=== PATIENT | female | born 1930 | race Caucasian/White ===

== ENCOUNTER 2017-12-15 15:40 | Inpatient (IN) | payer BC, MEDICARE, OTHER ==
[~2017-12-15] VITALS: Ht 157.5 cm; Wt 53.3 kg
[2017-12-15] MEDS ORDERED: SODIUM CHLORIDE 0.9% 1,000 ML IV ONE (16:22)
[2017-12-15] MEDS ORDERED: SODIUM CHLORIDE FLUSH 10ML SYR IVF ONE (16:30)
[2017-12-15] MEDS ORDERED: POLY17PO5 PO (16:41)
[2017-12-15] MEDS ORDERED: SENN-99 PO (16:41)
[2017-12-15] MEDS ORDERED: ASPI-650 PO (16:41)
[2017-12-15] MEDS ORDERED: LEVO112T4 PO (16:41)
[2017-12-15] MEDS ORDERED: OMEP-110 PO (16:41)
[2017-12-15] MEDS ORDERED: CHOL100015 PO (16:41)
[2017-12-15] MEDS ORDERED: ATOR40TA78 PO (16:41)
[2017-12-15] MEDS ORDERED: LISI-170 PO (16:41)
[2017-12-15 16:52] LABS: CULTURE INDICATED? YES; MICROSCOPIC INDICATED
[2017-12-15 17:23] LABS: MEAN CORPUSCULAR HEMOGLOBIN 30.5 pg (27.0-34.8); MEAN CORPUSCULAR HGB CONC 33.3 g/dL (32.4-35.8); MEAN CORPUSCULAR VOLUME 91.6 fL (80-100); MEAN PLATELET VOLUME 8.8 fL (7.4-10.4); PLATELET COUNT 285 x10^3/uL (130-400); RED CELL DISTRIBUTION WIDTH 14.9 % (9.6-15.2)
[2017-12-15] MEDS ORDERED: CEFTRIAXONE PMX 1GM/50ML 50 ML ONE (17:23)
[2017-12-15 17:30] LABS: ALANINE AMINOTRANSFERASE 17 U/L (12-78); ALBUMIN 2.9 g/dL (3.4-5.0); ANION GAP 11 mmol/L (5-15); CALCIUM 7.8 mg/dL (8.5-10.1); CHLORIDE 106 mmol/L (98-107); CREATININE 0.58 mg/dL (0.55-1.02)
[2017-12-15] MEDS ORDERED: SODIUM CHLORIDE 0.9% 1,000ML IVBOLUS ONE (17:30)
[2017-12-15] MEDS ORDERED: CEFTRIAXONE PMX 1GM/50ML 50 ML IV ONE (17:30)
[2017-12-15 17:37] LABS: BAND#(MANUAL) 0.85 x10^3/uL; BANDS%(MANUAL) 4 % (0-7); LYMPH#(MANUAL) 2.13 x10^3/uL (1-3.4); LYMPHS% (MANUAL) 10 % (22-44); MD YES; MONOS#(MANUAL) 0.64 x10^3/uL (0.3-2.7); MONOS% (MANUAL) 3 % (2-9); SEG#(MANUAL) 17.68 x10^3/uL (1.8-6.8); SEGS% (MANUAL) 83 % (42-75)
[2017-12-15 17:39] LABS: <PLATELET ESTIMATE> ADEQUATE; <PLT MORPHOLOGY> NORMAL PLT MORPH; <RBC MORPHOLOGY> NORMAL
[2017-12-15 17:40] LABS: ALKALINE PHOSPHATASE 96 U/L (45-117); BILIRUBIN,TOTAL 0.9 mg/dL (0.2-1.0); THYROID STIMULATING HORMONE 0.225 mIU/L (0.358-3.740); TOTAL PROTEIN 7.1 g/dL (6.4-8.2)
[2017-12-15] MEDS ORDERED: CEFTAZIDIME PMX 2 GM/50ML 50 ML IV ONE (18:00)
[2017-12-15] MEDS ORDERED: CEFTAZIDIME 2,000 MG in SODIUM CHLORIDE 0.9% 50 ML IV ONE (18:30)
[2017-12-15 19:29] LABS: TROPONIN I 0.118 ng/mL (0.000-0.045)
[2017-12-15 20:25] LABS: T4 (THYROXINE) 16.9 mcg/dL (4.8-13.9)
[2017-12-15] MEDS ORDERED: ERGOCALCIFEROL 50,000 UNIT CAPSULE PO SCH (20:30)
[2017-12-15] MEDS ORDERED: ACETAMINOPHEN 325 MG TABLET PO PRN (20:30)
[2017-12-15] MEDS ORDERED: ONDANSETRON ODT 4 MG PO PRN (20:30)
[2017-12-15] MEDS ORDERED: BISACODYL 10 MG SUPP PR PRN (20:30)
[2017-12-15 21:00] VITALS: BP 145/79
[2017-12-15] MEDS: SENNOSIDES 8.6 MG TABLET PO SCH (21:00)
[2017-12-15] MEDS: ATORVASTATIN 40 MG TABLET PO SCH (21:00)
[2017-12-15] MEDS: LISINOPRIL 10 MG TABLET PO SCH (21:00)
[2017-12-15] MEDS: CEFTAZIDIME 1,000 MG in SODIUM CHLORIDE 0.9% 50 ML IV SCH (22:25)
[2017-12-15] MEDS: NS + 20MEQ KCL 1,000 ML IV SCH (22:25)
[2017-12-15] MEDS: HEPARIN 5,000 UNITS/ML, 1ML SQ SCH (22:26)
[2017-12-15 23:22] LABS: TROPONIN I 0.144 ng/mL (0.000-0.045)
[2017-12-16 02:37] VITALS: BP 139/77
[2017-12-16 04:55] LABS: BASOPHILS # (AUTO) 0.04 x10^3/uL (0-0.1); BASOPHILS % (AUTO) 0 % (0-1); EOSINOPHILS # (AUTO) 0.08 x10^3/uL (0-0.4); EOSINOPHILS % (AUTO) 1 % (1-7); LYMPHOCYTES # (AUTO) 1.34 x10^3/uL (1-3.4); LYMPHOCYTES % (AUTO) 11 % (22-44); MD NO; MEAN CORPUSCULAR HEMOGLOBIN 30.3 pg (27.0-34.8); MEAN CORPUSCULAR HGB CONC 33.4 g/dL (32.4-35.8); MEAN CORPUSCULAR VOLUME 90.8 fL (80-100); MONOCYTES # (AUTO) 0.77 x10^3/uL (0.2-0.8); MONOCYTES % (AUTO) 6 % (2-9); NEUTROPHILS # (AUTO) 10.05 x10^3/uL (1.8-6.8); NEUTROPHILS % (AUTO) 82 % (42-75); PLATELET COUNT 249 x10^3/uL (130-400); RED BLOOD COUNT 3.83 x10^6/uL (3.82-5.3); RED CELL DISTRIBUTION WIDTH 14.6 % (9.6-15.2)
[2017-12-16 04:58] LABS: CHLORIDE 111 mmol/L (98-107)
[2017-12-16 05:25] LABS: ALANINE AMINOTRANSFERASE 15 U/L (12-78); ALBUMIN 2.4 g/dL (3.4-5.0); ALKALINE PHOSPHATASE 78 U/L (45-117); ANION GAP 10 mmol/L (5-15); CALCIUM 6.6 mg/dL (8.5-10.1); CREATININE 0.43 mg/dL (0.55-1.02); TROPONIN I 0.179 ng/mL (0.000-0.045)
[2017-12-16] MEDS: NS + 20MEQ KCL 1,000 ML IV SCH ×2 (06:04→17:32)
[2017-12-16] MEDS: CEFTAZIDIME 1,000 MG in SODIUM CHLORIDE 0.9% 50 ML IV SCH ×3 (06:07→23:11)
[2017-12-16] MEDS: HEPARIN 5,000 UNITS/ML, 1ML SQ SCH ×3 (06:08→23:10)
[2017-12-16 07:24] VITALS: BP 138/62
[2017-12-16] MEDS: OMEPRAZOLE 20 MG CAPSULE.DR PO SCH (09:00)
[2017-12-16] MEDS: POLYETHYLENE GLYCOL 17 GM PACKET PO SCH (09:00)
[2017-12-16] MEDS: ASPIRIN 325 MG TABLET PO SCH (09:00)
[2017-12-16] MEDS: SENNOSIDES 8.6 MG TABLET PO SCH ×2 (09:00→22:00)
[2017-12-16] MEDS: LISINOPRIL 10 MG TABLET PO SCH ×2 (09:00→22:00)
[2017-12-16 14:23] VITALS: BP 154/80
[2017-12-16] MEDS ORDERED: ASPIRIN 325 MG TABLET PO ONE (18:00)
[2017-12-16 20:45] VITALS: BP 140/73
[2017-12-16] MEDS: ATORVASTATIN 40 MG TABLET PO SCH (22:00)
[2017-12-17 01:56] VITALS: BP 137/85
[2017-12-17 04:40] VITALS: BP 162/77
[2017-12-17 04:48] LABS: BASOPHILS # (AUTO) 0.06 x10^3/uL (0-0.1); BASOPHILS % (AUTO) 1 % (0-1); EOSINOPHILS # (AUTO) 0.28 x10^3/uL (0-0.4); EOSINOPHILS % (AUTO) 2 % (1-7); LYMPHOCYTES # (AUTO) 1.43 x10^3/uL (1-3.4); LYMPHOCYTES % (AUTO) 12 % (22-44); MD NO; MEAN CORPUSCULAR HEMOGLOBIN 29.8 pg (27.0-34.8); MEAN CORPUSCULAR HGB CONC 32.5 g/dL (32.4-35.8); MEAN CORPUSCULAR VOLUME 91.6 fL (80-100); MEAN PLATELET VOLUME 9.4 fL (7.4-10.4); MONOCYTES # (AUTO) 0.72 x10^3/uL (0.2-0.8); MONOCYTES % (AUTO) 6 % (2-9); NEUTROPHILS # (AUTO) 9.36 x10^3/uL (1.8-6.8); NEUTROPHILS % (AUTO) 79 % (42-75); PLATELET COUNT 251 x10^3/uL (130-400); RED BLOOD COUNT 4.03 x10^6/uL (3.82-5.3); RED CELL DISTRIBUTION WIDTH 14.8 % (9.6-15.2)
[2017-12-17 04:58] LABS: ALANINE AMINOTRANSFERASE 14 U/L (12-78); ALBUMIN 2.2 g/dL (3.4-5.0); ANION GAP 11 mmol/L (5-15); CALCIUM 7.4 mg/dL (8.5-10.1); CHLORIDE 112 mmol/L (98-107); CREATININE 0.46 mg/dL (0.55-1.02)
[2017-12-17 05:00] LABS: ALKALINE PHOSPHATASE 81 U/L (45-117); BILIRUBIN,TOTAL 1.1 mg/dL (0.2-1.0); TOTAL PROTEIN 5.9 g/dL (6.4-8.2)
[2017-12-17] MEDS: NS + 20MEQ KCL 1,000 ML IV SCH (05:00)
[2017-12-17] MEDS ORDERED: FUROSEMIDE 20 MG/2 ML IV ONE (05:30)
[2017-12-17] MEDS ORDERED: MAGNESIUM SULFATE PMX 2GM/50ML 50 ML IV ONE (07:00)
[2017-12-17] MEDS: CEFTAZIDIME 1,000 MG in SODIUM CHLORIDE 0.9% 50 ML IV SCH ×3 (08:12→22:52)
[2017-12-17] MEDS: HEPARIN 5,000 UNITS/ML, 1ML SQ SCH ×3 (08:12→22:52)
[2017-12-17] MEDS ORDERED: POTASSIUM CHLORIDE 20 MEQ TAB.ER.PRT PO ONE ×2 (08:30→15:00)
[2017-12-17] MEDS ORDERED: POTASSIUM PHOSPHATE 44 MEQ in SODIUM CHLORIDE 0.9% 500 ML IV ONE (08:30)
[2017-12-17] MEDS ORDERED: MAGNESIUM SULFATE 6 GM in SODIUM CHLORIDE 0.9% 250 ML IV ONE (08:30)
[2017-12-17 09:16] VITALS: BP 144/85
[2017-12-17] MEDS: POLYETHYLENE GLYCOL 17 GM PACKET PO SCH (10:06)
[2017-12-17] MEDS: LISINOPRIL 10 MG TABLET PO SCH ×2 (10:07→22:52)
[2017-12-17] MEDS: OMEPRAZOLE 20 MG CAPSULE.DR PO SCH (10:07)
[2017-12-17] MEDS: ASPIRIN 325 MG TABLET PO SCH (10:18)
[2017-12-17] MEDS: SENNOSIDES 8.6 MG TABLET PO SCH ×2 (10:18→21:00)
[2017-12-17 14:12] VITALS: BP 138/85
[2017-12-17 20:20] VITALS: BP 142/71
[2017-12-17] MEDS: ATORVASTATIN 40 MG TABLET PO SCH (22:52)
[2017-12-18 02:45] VITALS: BP 137/81
[2017-12-18 05:01] LABS: BASOPHILS # (AUTO) 0.04 x10^3/uL (0-0.1); BASOPHILS % (AUTO) 0 % (0-1); EOSINOPHILS # (AUTO) 0.23 x10^3/uL (0-0.4); EOSINOPHILS % (AUTO) 2 % (1-7); LYMPHOCYTES # (AUTO) 1.17 x10^3/uL (1-3.4); LYMPHOCYTES % (AUTO) 11 % (22-44); MD NO; MEAN CORPUSCULAR HEMOGLOBIN 30.6 pg (27.0-34.8); MEAN CORPUSCULAR HGB CONC 33.8 g/dL (32.4-35.8); MEAN CORPUSCULAR VOLUME 90.4 fL (80-100); MEAN PLATELET VOLUME 9.1 fL (7.4-10.4); MONOCYTES # (AUTO) 0.55 x10^3/uL (0.2-0.8); MONOCYTES % (AUTO) 5 % (2-9); NEUTROPHILS # (AUTO) 8.78 x10^3/uL (1.8-6.8); NEUTROPHILS % (AUTO) 82 % (42-75); PLATELET COUNT 258 x10^3/uL (130-400); RED BLOOD COUNT 3.89 x10^6/uL (3.82-5.3); RED CELL DISTRIBUTION WIDTH 14.4 % (9.6-15.2)
[2017-12-18 05:12] LABS: ANION GAP 7 mmol/L (5-15); CHLORIDE 110 mmol/L (98-107); CREATININE 0.46 mg/dL (0.55-1.02)
[2017-12-18] MEDS: CEFTAZIDIME 1,000 MG in SODIUM CHLORIDE 0.9% 50 ML IV SCH (06:26)
[2017-12-18] MEDS: HEPARIN 5,000 UNITS/ML, 1ML SQ SCH ×2 (06:27→15:00)
[2017-12-18 07:07] VITALS: BP 133/78
[2017-12-18] MEDS: OMEPRAZOLE 20 MG CAPSULE.DR PO SCH (09:00)
[2017-12-18] MEDS: ASPIRIN 325 MG TABLET PO SCH (09:13)
[2017-12-18] MEDS: LISINOPRIL 10 MG TABLET PO SCH (09:13)
[2017-12-18] MEDS: POLYETHYLENE GLYCOL 17 GM PACKET PO SCH (09:13)
[2017-12-18] MEDS: SENNOSIDES 8.6 MG TABLET PO SCH (09:14)
[2017-12-18 13:11] VITALS: BP 163/92
[2017-12-18] MEDS ORDERED: LEVO112T4 PO (14:28)
[2017-12-18] MEDS ORDERED: CEFD300C37 PO (14:28)
[2017-12-18] MEDS ORDERED: CEFTRIAXONE PMX 2GM/50ML 50 ML IV ONE (14:30)
[2017-12-18] MEDS ORDERED: LEVOTHYROXINE 100 MCG TABLET PO SCH (14:30)
[2017-12-18] MEDS ORDERED: CEFTRIAXONE 2 GM IM ONE (16:00)
[2017-12-18] MEDS ORDERED: LIDOCAINE 1%, 20ML IM ONE (16:00)
[2017-12-18] MEDS ORDERED: CEFTRIAXONE 1,000 MG IM ONE (16:00)
[2017-12-18] MEDS ORDERED: LIDOCAINE-MPF 1%, 5ML IM ONE ×2 (16:30)
[2017-12-22] MEDS ORDERED: ERGOCALCIFEROL 50,000 UNIT CAPSULE PO SCH (09:00)
== END 2017-12-18 17:10 | disposition home or self-care (01) | DRG 871 ==
LOC: ED 16:30 → EDIP 19:45 → 4WST 20:52
PROVIDERS: ADMIT Hospitalist; ATTEND Hospitalist
PROC: 0T9B70Z Drainage of Bladder with Drainage Device, Via Natural or Artificial Opening (ICD-10-PCS; principal; 2017-12-15)
DX: A41.9 Sepsis, unspecified organism (principal); E43 Unspecified severe protein-calorie malnutrition; G93.41 Metabolic encephalopathy; I69.354 Hemiplegia and hemiparesis following cerebral infarction affecting left non-dominant side; N39.0 Urinary tract infection, site not specified; I24.8 Other forms of acute ischemic heart disease; E03.9 Hypothyroidism, unspecified; E78.5 Hyperlipidemia, unspecified; E83.39 Other disorders of phosphorus metabolism; E83.42 Hypomagnesemia; E87.6 Hypokalemia; I07.1 Rheumatic tricuspid insufficiency; I10 Essential (primary) hypertension; I69.320 Aphasia following cerebral infarction; I73.9 Peripheral vascular disease, unspecified; M19.90 Unspecified osteoarthritis, unspecified site; Z66 Do not resuscitate; Z74.01 Bed confinement status; Z79.890 Hormone replacement therapy; Z95.2 Presence of prosthetic heart valve; Z88.2 Allergy status to sulfonamides; B96.20 Unspecified Escherichia coli [E. coli] as the cause of diseases classified elsewhere
CPT/HCPCS: 36415; 70551; 71045; 80048; 80053; 81001; 83605; 83735; 84100; 84436; 84443; 84484; 85025; 87040; 87077; 87086; 87186; 93005; 93308; 96365; 96366; 99285; G0378; J0696; J0713; J1644; J3475; J3480; 92523-GN; J1940; J7030; J7040; J7050